=== PATIENT | female | born 1955 | race American Indian/Alaskan Native ===

== ENCOUNTER 2019-04-20 08:00 | Outpatient (CLI) | payer BC ==
--- NOTE | 2019-04-23 08:48 | Mammography Report ---
BONE DEXA CLINICAL: Postmenopausal TECHNIQUE: 3 site bone DEXA performed on an Hologic scanner. FINDINGS: The average BMD of the lumbar spine L1-L4 is 0.924g/cm squared with a T score of -2.1 and a Z score o f -0.4. The average total BMD of the left hip is 0.935 g/cm squared with a T score of -0.6and a Z score of +0 .2. The left femoral neck BMD is 0.720 g/cm squared with a T score of -1.6 and a Z score of -0.5. IMPRESSION: 1. WHO classification: Osteopenia with increased fracture risk based on spine and left femoral neck m easurements. 2. WHO classification Normal with average fracture risk based on left total hip measurements. RECOMMENDATION: Clinical correlation and routine screening. Definitions: BMD equal bone mineral density T score = BMD related to peak bone mass of young adult ([place] expressed an standard deviation) Z score = age-matched BMD expressed in SD World health organization (WHO) diagnostic criteria Normal T score greater than equal to 1 standard deviation Osteopenia T score between -1 and -2.4 standard deviation Osteoporosis T score -2.5 standard deviation or below. Note: BMD is not the only risk factor for fracture; also consider factors such as the patient's age, risk of falling, previous osteoporotic fracture, family history of osteoporotic fractures, current sm oker and low body weight. Z scores are not calculated if greater than 80 years of age. Signer Name: True Jones MD Signed: 04/23/2019 8:44 AM Workstation Name: [id number]
== END 2019-04-20 08:01 | disposition home or self-care (01) ==
LOC: SPVWC 08:00
PROVIDERS: ATTEND Family Medicine
DX: Z13.820 Encounter for screening for osteoporosis (principal); M81.0 Age-related osteoporosis without current pathological fracture
CPT/HCPCS: 77080